=== PATIENT | female | born 1955 | race Caucasian/White ===

== ENCOUNTER 2016-08-15 10:56 | Emergency (ER) | payer BC, OTHER ==
[~2016-08-15] VITALS: Ht 175.3 cm; Wt 74.0 kg
[~2016-08-15 10:56] MED LIST: ALPR.25 PO; ASPI81TA82 PO; LISI2.5T55 PO; LOVA40TA PO; NORV10TA PO; SYNT50TA PO; TYLE3 PO; ZOLO25TA PO
[2016-08-15 11:00] VITALS: BP 128/77; PULSE 101; RESP 16; TEMP 97.4; O2SAT 90
[2016-08-15] MEDS ORDERED: LEVO50TA4 PO (11:20)
[2016-08-15] MEDS ORDERED: TYLETAB34 PO (11:20)
[2016-08-15] MEDS ORDERED: LOVA40TA PO (11:20)
[2016-08-15] MEDS ORDERED: SERT25TA83 PO (11:20)
[2016-08-15] MEDS ORDERED: ASPI81CH CHEW (11:20)
[2016-08-15] MEDS ORDERED: ALPR0.25 PO (11:20)
[2016-08-15] MEDS ORDERED: LISI2.5T3 PO (11:20)
[2016-08-15 11:38] LABS: BLOOD, URINE NEG (NEG); GLUCOSE,URINE NEG (NEG); KETONE, URINE NEG (NEG); NITRITE,URINE NEG (NEG)
[2016-08-15 11:47] LABS: CALCIUM OXALATE CRYSTALS,URINE MOD /hpf; COMMENT (UR) CULT NOT INDICATED; CULTURE IF INDICATED CULT NOT INDICATED; METHOD OF COLLECTION VOIDED; SQUAMOUS EPITHELIAL CELL URINE 0-5 /hpf (0-5); URINE COLOR YELLOW (YELLW/STRAW); WBC, URINE 0-2 /hpf (0-5)
[2016-08-15] MEDS ORDERED: ONDANSETRON HCL 4 MG/2 ML VIAL IV PUSH ONE (12:00)
[2016-08-15] MEDS ORDERED: LOPE2CAP PO (12:04)
[2016-08-15] MEDS ORDERED: ZOFR4TAB3 SL (12:04)
--- NOTE | 2016-08-15 12:04 | PD ---
HPI Chief Complaint: GI Complaint Time Seen by Provider: 11:05 Travel History International Travel<30 days: No Contact w/Intl Traveler<30days: No Traveled to known affect area: No History of Present Illness HPI This 60 year-old woman who presents to the emergency department complaining of episode of diaphoresis and vomiting this morning while work. States around 7: 30 this morning she had the fairly abrupt onset of diaphoresis swelling of vomiting. She felt a little bit better afterwards and went home. She was worried and so she had a for a number to the emergency department. She's had one bowel movement since the onset he symptoms and it was a little bit loose. She had some abdominal cramping when she had the vomiting but the symptoms are most resolved. She saw some queasiness her stomach. No chest pain. No trouble breathing. No urinary symptoms. She otherwise had been feeling generally well and healthy. She had a doughnut from the breakfast buffet this morning but otherwise hasn't eaten anything suspect. History Past Medical History Narrative Medical CVA in 2013 History of von Willebrand's disease in the past although multiple recent tests of been negative. Arthritis Tetanus Vaccination: Unknown Influenza Vaccination: Yes Social History Alcohol Use: No Tobacco Use: No Allergies-Medications (Allergen,Severity, Reaction): Coded Allergies: Penicillin (Verified Allergy, Severe, Hives, 08/15/16) Aspirin (Verified Adverse Reaction, Severe, Bleeding, 08/15/16) Nonsteroidal Anti-Inflammatory Agts (Verified Adverse Reaction, Severe, Bleeding, 08/15/16) Reported Meds & Prescriptions Reported Meds & Active Scripts Active Loperamide (Loperamide HCl) 2 Mg Cap 2 Mg PO DIRECTED PRN One capsule after each loose stool. Not to exceed 8 capsules per day. Zofran Odt (Ondansetron Odt) 4 Mg Tab 4 Mg SL Q8HR PRN May substitute non-ODT form. Reported Levothyroxine (Levothyroxine Sodium) 50 Mcg Tab 50 Mcg PO DAILY Aspirin 81 Mg Chew 81 Mg CHEW DAILY Sertraline (Sertraline HCl) 25 Mg Tab 25 Mg PO DAILY Alprazolam 0.25 Mg Tab 0.25 Mg PO HS PRN Lisinopril 2.5 Mg Tab 0.5 Mg PO BID Lovastatin 40 Mg Tab 40 Mg PO DAILY Tylenol-Codeine #3 (Acetaminophen-Codeine) 300-30 mg Tab 1 Tab PO BID PRN Review of Systems Except as stated in HPI: all other systems reviewed are Neg Physical Exam Narrative GENERAL: Well-appearing 60 year-old woman, no acute distress. SKIN: Focused skin assessment warm/dry. HEAD: Atraumatic. Normocephalic. EYES: Pupils equal and round. No scleral icterus. No injection or drainage. ENT: No nasal bleeding or discharge. Mucous membranes pink and moist. NECK: Trachea midline. No JVD. CARDIOVASCULAR: Regular rate and rhythm. No murmur appreciated. RESPIRATORY: No accessory muscle use. Clear to auscultation. Breath sounds equal bilaterally. GASTROINTESTINAL: Abdomen soft, non-tender, nondistended. Hepatic and splenic margins not palpable. MUSCULOSKELETAL: No obvious deformities. Data Data Last Documented VS Vital Signs Date Time Temp Pulse Resp B/P Pulse Ox O2 Delivery O2 Flow Rate FiO2 08/15/16 11:00 97.4 101 16 128/77 90 Orders Urinalysis - C+S If Indicated (08/15/16 11:01) Complete Blood Count With Diff (08/15/16 11:49) Comprehensive Metabolic Panel (08/15/16 11:49) Lipase (08/15/16 11:49) Troponin I (08/15/16 11:49) Electrocardiogram (08/15/16 ) Iv Access Insert/Monitor (08/15/16 11:49) Ondansetron Inj (Zofran Inj) (08/15/16 12:00) Labs Laboratory Tests Test 08/15/16 08/15/16 11:25 12:10 Urine Collection Type VOIDED Urine Color YELLOW Urine Turbidity CLEAR Urine pH 5.0 Urine Specific [place] GREATER THAN 1.035 Urine Protein TRACE mg/dL Urine Glucose (UA) NEG mg/dL Urine Ketones NEG mg/dL Urine Occult Blood NEG Urine Nitrite NEG Urine Bilirubin NEG Urine Leukocyte Esterase NEG Urine WBC 0-2 /hpf Urine Squamous Epithelial 0-5 /hpf Cells Urine Calcium Oxalate Crystals MOD /hpf Microscopic Urinalysis Comment CULT NOT INDICATED Urine Collection Time 1125 White Blood Count 19.9 TH/MM3 Red Blood Count 5.03 MIL/MM3 Hemoglobin 14.2 GM/DL Hematocrit 42.1 % Mean Corpuscular Volume 83.8 FL Mean Corpuscular Hemoglobin 28.3 PG Mean Corpuscular Hemoglobin 33.8 % Concent Red Cell Distribution Width 13.1 % Platelet Count 213 TH/MM3 Mean Platelet Volume 9.2 FL Neutrophils (%) (Auto) 86.8 % Lymphocytes (%) (Auto) 6.0 % Monocytes (%) (Auto) 3.3 % Eosinophils (%) (Auto) 0.4 % Basophils (%) (Auto) 3.5 % Neutrophils # (Auto) 17.2 TH/MM3 Lymphocytes # (Auto) 1.2 TH/MM3 Monocytes # (Auto) 0.7 TH/MM3 Eosinophils # (Auto) 0.1 TH/MM3 Basophils # (Auto) 0.7 TH/MM3 CBC Comment DIFF FINAL Differential Comment Sodium Level 144 MEQ/L Potassium Level 3.9 MEQ/L Chloride Level 111 MEQ/L Carbon Dioxide Level 26.2 MEQ/L Anion Gap 7 MEQ/L Blood Urea Nitrogen 20 MG/DL Creatinine 1.10 MG/DL Estimat Glomerular Filtration 50 ML/MIN Rate Random Glucose 113 MG/DL Calcium Level 9.0 MG/DL Total Bilirubin 0.5 MG/DL Aspartate Amino Transf 20 U/L (AST/SGOT) Alanine Aminotransferase 26 U/L (ALT/SGPT) Alkaline Phosphatase 83 U/L Troponin I LESS THAN 0.02 NG/ML Total Protein 6.8 GM/DL Albumin 3.4 GM/DL Lipase 194 U/L MDM Medical Decision Making Medical Screen Exam Complete: Yes Emergency Medical Condition: Yes Interpretation(s) My review of EKG: Normal sinus rhythm at a rate of 80, normal axis, normal intervals, no acute ischemia, occasional PAC Differential Diagnosis Acute gastroenteritis, choledocholithiasis, pancreatitis, ACS, other Narrative Course Medical decision making Is a well 58-year-old woman presents emergent from vomiting today. a little bit of loose stool. suspect acute gastroenteritis. we'll check ekg and troponin, we'll also check basic labs and liver enzymes. likely discharge. Diagnosis Primary Impression: Nausea & vomiting Additional Instructions: Take Zofran as needed for nausea or vomiting. Use loperamide if needed for diarrhea. Follow-up with her primary doctor in the next 2-4 days. Return to the emergency department for any worsening abdominal pain, chest pain , trouble breathing, syncope or passing out, or any other new or worsening symptoms. Med/Other Pt SpecificInfo: Prescription(s) given Scripts Loperamide 2 Mg Cap2 Mg PO DIRECTED PRN (DIARRHEA) #8 CAP Ref 0 One capsule after each loose stool. Not to exceed 8 capsules per day. Prov:Dontrell Campo MD 08/15/16 Ondansetron Odt (Zofran Odt)4 Mg Tab4 Mg SL Q8HR PRN (Nausea/Vomiting) #15 TAB May substitute non-ODT form. Prov:Dontrell Campo MD 08/15/16 Disposition: 01 DISCHARGE HOME Condition: Stable Dontrell Campo MD Aug 15, 2016 12:04
[2016-08-15 12:18] LABS: AUTOMATED NEUTROPHIL # 17.2 TH/MM3 (1.8-7.7); BASOPHIL # 0.7 TH/MM3 (0-0.2); BASOPHIL % 3.5 % (0.0-2.0); EOSINOPHIL # 0.1 TH/MM3 (0-0.4); EOSINOPHIL % 0.4 % (0.0-4.0); HEMATOCRIT 42.1 % (35.0-46.0); HEMO FLAGS DIFF FINAL; LYMPHOCYTE # 1.2 TH/MM3 (1.0-4.8); MEAN CELL VOLUME 83.8 FL (80.0-100.0); MEAN CORPUSCULAR HEMOGLOBIN 28.3 PG (27.0-34.0); MEAN CORPUSCULAR HGB CONC 33.8 % (32.0-36.0); MONO % 3.3 % (0.0-8.0); NEUT % 86.8 % (16.0-70.0); PLATELET COUNT 213 TH/MM3 (150-450); RED BLOOD COUNT 5.03 MIL/MM3 (4.00-5.30); RED CELL DISTRIBUTION WIDTH 13.1 % (11.6-17.2); WHITE BLOOD COUNT 19.9 TH/MM3 (4.0-11.0)
[2016-08-15 12:26] LABS: CHLORIDE 111 MEQ/L (98-107); POTASSIUM 3.9 MEQ/L (3.5-5.1); SODIUM (NA) 144 MEQ/L (136-145)
[2016-08-15 12:30] LABS: ANION GAP 7 MEQ/L (5-15); BICARBONATE 26.2 MEQ/L (21.0-32.0); BLOOD UREA NITROGEN 20 MG/DL (7-18)
[2016-08-15 12:33] LABS: AST (GOT) 20 U/L (15-37); GLOMERULAR FILTRATION RATE 50 ML/MIN (>89)
[2016-08-15 12:34] LABS: ALT (GPT) 26 U/L (10-53)
[2016-08-15 12:35] LABS: TOTAL BILIRUBIN ADULT 0.5 MG/DL (0.2-1.0)
[2016-08-15 12:36] LABS: ALKALINE PHOSPHATASE 83 U/L (45-117)
[2016-08-15 13:29] VITALS: BP 125/82
--- NOTE | 2016-08-16 12:18 | EKG ---
Date Performed: 08/15/2016 Time Performed: 11:51:18 PTAGE: 60 years EKG: Sinus rhythm with PAC(s) Borderline ECG Compared to prior tracing no significant change PREVIOUS TRACING : 01/18/2015 10.43 DOCTOR: Hoang Hodge Interpretating Date/Time 08/16/2016 12:17:23
== END 2016-08-15 13:29 | disposition home or self-care (01) ==
LOC: PHED 10:56
DX: R11.2 Nausea with vomiting, unspecified (principal); D68.0 Von Willebrand disease; Z79.82 Long term (current) use of aspirin; Z79.899 Other long term (current) drug therapy; Z86.73 Personal history of transient ischemic attack (TIA), and cerebral infarction without residual deficits
CPT/HCPCS: 80053; 81001; 83690; 84484; 85025; 93005; 96374; 99284; J2405

== ENCOUNTER 2016-09-27 12:53 | Emergency (ER) | payer BC ==
[~2016-09-27] VITALS: Ht 175.3 cm; Wt 73.6 kg
[~2016-09-27 12:53] MED LIST changes: -ALPR.25 PO; +ALPR0.25 PO; +ASPI81CH CHEW; -ASPI81TA82 PO; +LEVO50TA4 PO; +LISI2.5T3 PO; -LISI2.5T55 PO; +LOPE2CAP PO; -NORV10TA PO; +SERT25TA83 PO; -SYNT50TA PO; -TYLE3 PO; +TYLETAB34 PO; +ZOFR4TAB3 SL; -ZOLO25TA PO
[2016-09-27 12:57] VITALS: BP 138/78; PULSE 70; RESP 17; TEMP 97.6; O2SAT 97
[2016-09-27] MEDS ORDERED: LOSA50TA PO (14:44)
[2016-09-27] MEDS ORDERED: CIPR500T2 PO (15:52)
== END 2016-09-27 13:00 | disposition left against medical advice (07) ==
LOC: NED 12:53
DX: R68.89 Other general symptoms and signs (principal)
CPT/HCPCS: 99281

== ENCOUNTER 2016-09-27 14:19 | Emergency (ER) | payer BC ==
[~2016-09-27] VITALS: Ht 175.3 cm; Wt 71.9 kg
[2016-09-27 14:25] VITALS: BP 151/88; PULSE 66; RESP 16; TEMP 97.6; O2SAT 95
[2016-09-27] MEDS ORDERED: LOSA50TA PO (14:44)
[2016-09-27] MEDS ORDERED: SODIUM CHLOR 0.9% 1000 ML INJ 1,000 ML IV ONE (14:45)
--- NOTE | 2016-09-27 14:46 | PD ---
HPI Chief Complaint: Flank/Kidney Pain Time Seen by Provider: 14:30 Travel History International Travel<30 days: No Contact w/Intl Traveler<30days: No Traveled to known affect area: No History of Present Illness HPI Patient is a 60-year-old female who presents to emergency room with complaints of bilateral flank pain, dehydration, decreased urine output for the past 2 days. Patient reports that she has been trying to keep her fluid intake and has been drinking water, reports that she feels dehydrated and reports that the last time this happened, she was diagnosed with a urinary tract infection. Reports that she has frequent UTIs, reports that her past symptoms are similar to today's symptoms. Patient denies any fevers or chills. Patient denies hematuria, denies dysuria, urinary urgency or frequency. Patient with no fevers or chills, no other complaints. PFSH Past Medical History Arthritis: Yes Autoimmune Disease: No Anxiety: Yes Depression: Yes Cancer: No Cardiovascular Problems: Yes High Cholesterol: Yes Cerebrovascular Accident: Yes (2003) Diminished Hearing: No Endocrine: No Gastrointestinal Disorders: Yes GERD: Yes Genitourinary: No Headaches: Yes Hypertension: Yes Immune Disorder: No Implanted Vascular Access Dvce: No Musculoskeletal: Yes Neurologic: Yes Psychiatric: Yes Reproductive: No Respiratory: No Thyroid Disease: Yes (HYPO) Past Surgical History Genitourinary Surgery: Yes (BLADDER SLING) Gynecologic Surgery: Yes (HYSTERECTOMY,. ) Hysterectomy: Yes Social History Alcohol Use: No Tobacco Use: No Substance Use: No Allergies-Medications (Allergen,Severity, Reaction): Coded Allergies: Penicillin (Verified Allergy, Severe, Hives, 09/27/16) Aspirin (Verified Adverse Reaction, Severe, Bleeding, 09/27/16) Nonsteroidal Anti-Inflammatory Agts (Verified Adverse Reaction, Severe, Bleeding, 09/27/16) Reported Meds & Prescriptions Reported Meds & Active Scripts Active Reported Losartan (Losartan Potassium) 50 Mg Tab 50 Mg PO DAILY Levothyroxine (Levothyroxine Sodium) 50 Mcg Tab 50 Mcg PO DAILY Aspirin 81 Mg Chew 81 Mg CHEW DAILY Sertraline (Sertraline HCl) 25 Mg Tab 25 Mg PO DAILY Alprazolam 0.25 Mg Tab 0.25 Mg PO HS PRN Lovastatin 40 Mg Tab 40 Mg PO DAILY Tylenol-Codeine #3 (Acetaminophen-Codeine) 300-30 mg Tab 1 Tab PO BID PRN Review of Systems General / Constitutional: No: Fever Eyes: No: Visual changes HENT: No: Headaches Cardiovascular: No: Chest Pain or Discomfort Respiratory: No: Shortness of Breath Gastrointestinal: No: Abdominal Pain Genitourinary: Positive: Decreased Urinary Output, Hesitancy, Flank Pain, No: Frequency, Dysuria, Hematuria Musculoskeletal: No: Pain Skin: No Rash Neurologic: No: Weakness Psychiatric: No: Depression Endocrine: No: Polydipsia Hematologic/Lymphatic: No: Easy Bruising Physical Exam Narrative GENERAL: No acute distress, nontoxic SKIN: Focused skin assessment warm/dry. HEAD: Atraumatic. Normocephalic. EYES: Pupils equal and round. No scleral icterus. No injection or drainage. ENT: No nasal bleeding or discharge. Mucous membranes pink and moist. NECK: Trachea midline. No JVD. CARDIOVASCULAR: Regular rate and rhythm. No murmur appreciated. RESPIRATORY: No accessory muscle use. Clear to auscultation. Breath sounds equal bilaterally. GASTROINTESTINAL: Abdomen soft, non-tender, nondistended. Hepatic and splenic margins not palpable. Patient with b/l flank pain on exam MUSCULOSKELETAL: No obvious deformities. No clubbing. No cyanosis. No edema. NEUROLOGICAL: Awake and alert. No obvious cranial nerve deficits. Motor grossly within normal limits. Normal speech. PSYCHIATRIC: Appropriate mood and affect; insight and judgment normal. Data Data Last Documented VS Vital Signs Date Time Temp Pulse Resp B/P Pulse Ox O2 Delivery O2 Flow Rate FiO2 09/27/16 14:25 97.6 66 16 151/88 95 Orders Complete Blood Count With Diff (09/27/16 14:34) Comprehensive Metabolic Panel (09/27/16 14:34) Prothrombin Time / Inr (Pt) (09/27/16 14:34) Act Partial Throm Time (Ptt) (09/27/16 14:34) Urinalysis - C+S If Indicated (09/27/16 14:34) Iv Access Insert/Monitor (09/27/16 14:34) Sodium Chlor 0.9% 1000 Ml Inj (Ns 1000 M (09/27/16 14:45) Urine Culture (09/27/16 14:45) Ceftriaxone Inj (Rocephin Inj) (09/27/16 15:15) Labs Laboratory Tests Test 09/27/16 14:45 White Blood Count 15.3 TH/MM3 Red Blood Count 4.95 MIL/MM3 Hemoglobin 14.3 GM/DL Hematocrit 42.4 % Mean Corpuscular Volume 85.7 FL Mean Corpuscular Hemoglobin 28.9 PG Mean Corpuscular Hemoglobin 33.7 % Concent Red Cell Distribution Width 14.1 % Platelet Count 251 TH/MM3 Mean Platelet Volume 9.1 FL Neutrophils (%) (Auto) 70.4 % Lymphocytes (%) (Auto) 18.9 % Monocytes (%) (Auto) 5.2 % Eosinophils (%) (Auto) 0.8 % Basophils (%) (Auto) 4.7 % Neutrophils # (Auto) 10.8 TH/MM3 Lymphocytes # (Auto) 2.9 TH/MM3 Monocytes # (Auto) 0.8 TH/MM3 Eosinophils # (Auto) 0.1 TH/MM3 Basophils # (Auto) 0.7 TH/MM3 CBC Comment DIFF FINAL Differential Comment Prothrombin Time 10.7 SEC Prothromb Time International 1.0 RATIO Ratio Activated Partial 27.5 SEC Thromboplast Time Urine Collection Type CLEAN CATCH Urine Color YELLOW Urine Turbidity CLEAR Urine pH 5.0 Urine Specific [place] 1.025 Urine Protein TRACE mg/dL Urine Glucose (UA) NEG mg/dL Urine Ketones NEG mg/dL Urine Occult Blood TRACE Urine Nitrite NEG Urine Bilirubin NEG Urine Leukocyte Esterase SMALL Urine RBC 10-14 /hpf Urine WBC 25-49 /hpf Urine WBC Clumps MOD Urine Squamous Epithelial > 8 /hpf Cells Urine Bacteria FEW /hpf Urine Hyaline Casts 20-24 /lpf Microscopic Urinalysis Comment CULTURE INDICATED Urine Collection Time 14:45 Sodium Level 137 MEQ/L Potassium Level 3.6 MEQ/L Chloride Level 101 MEQ/L Carbon Dioxide Level 27.0 MEQ/L Anion Gap 9 MEQ/L Blood Urea Nitrogen 44 MG/DL Creatinine 2.00 MG/DL Estimat Glomerular Filtration 25 ML/MIN Rate Random Glucose 102 MG/DL Calcium Level 9.2 MG/DL Total Bilirubin 0.5 MG/DL Aspartate Amino Transf 22 U/L (AST/SGOT) Alanine Aminotransferase 25 U/L (ALT/SGPT) Alkaline Phosphatase 86 U/L Total Protein 7.7 GM/DL Albumin 4.3 GM/DL MDM Medical Decision Making Medical Screen Exam Complete: Yes Emergency Medical Condition: Yes Interpretation(s) Vital Signs Date Time Temp Pulse Resp B/P Pulse Ox O2 Delivery O2 Flow Rate FiO2 09/27/16 14:25 97.6 66 16 151/88 95 Differential Diagnosis Differential includes cystitis, pyelonephritis, kidney stone, dehydration, electrolyte abnormality Narrative Course Patient is a 60-year-old female who presents to emergency room for evaluation of possible UTI versus pyelonephritis. Patient reports over the past 2 days, she has had urinary hesitancy, reports that she has been feeling dehydrated. Patient reports no dysuria, urinary urgency or frequency, reports that when she has these symptoms, she is usually diagnosed with a urinary tract infection. Patient is well-appearing in the emergency room, vital signs are stable. Plan to obtain basic blood work, will check a urinalysis for possible infection. Vital Signs Date Time Temp Pulse Resp B/P Pulse Ox O2 Delivery O2 Flow Rate FiO2 09/27/16 14:25 97.6 66 16 151/88 95 Laboratory Tests Test 09/27/16 14:45 White Blood Count 15.3 TH/MM3 (4.0-11.0) Red Blood Count 4.95 MIL/MM3 (4.00-5.30) Hemoglobin 14.3 GM/DL (11.6-15.3) Hematocrit 42.4 % (35.0-46.0) Mean Corpuscular Volume 85.7 FL (80.0-100.0) Mean Corpuscular Hemoglobin 28.9 PG (27.0-34.0) Mean Corpuscular Hemoglobin 33.7 % Concent (32.0-36.0) Red Cell Distribution Width 14.1 % (11.6-17.2) Platelet Count 251 TH/MM3 (150-450) Mean Platelet Volume 9.1 FL (7.0-11.0) Neutrophils (%) (Auto) 70.4 % (16.0-70.0) Lymphocytes (%) (Auto) 18.9 % (9.0-44.0) Monocytes (%) (Auto) 5.2 % (0.0-8.0) Eosinophils (%) (Auto) 0.8 % (0.0-4.0) Basophils (%) (Auto) 4.7 % (0.0-2.0) Neutrophils # (Auto) 10.8 TH/MM3 (1.8-7.7) Lymphocytes # (Auto) 2.9 TH/MM3 (1.0-4.8) Monocytes # (Auto) 0.8 TH/MM3 (0-0.9) Eosinophils # (Auto) 0.1 TH/MM3 (0-0.4) Basophils # (Auto) 0.7 TH/MM3 (0-0.2) CBC Comment DIFF FINAL Differential Comment Prothrombin Time 10.7 SEC (9.8-11.6) Prothromb Time International 1.0 RATIO Ratio Activated Partial 27.5 SEC Thromboplast Time (24.3-30.1) Urine Collection Type CLEAN CATCH Urine Color YELLOW (YELLW/STRAW) Urine Turbidity CLEAR (CLEAR) Urine pH 5.0 (5.0-8.5) Urine Specific [place] 1.025 (1.002-1.035) Urine Protein TRACE mg/dL (NEG-TRACE) Urine Glucose (UA) NEG mg/dL (NEG) Urine Ketones NEG mg/dL (NEG) Urine Occult Blood TRACE (NEG) Urine Nitrite NEG (NEG) Urine Bilirubin NEG (NEG) Urine Leukocyte Esterase SMALL (NEG) Urine RBC 10-14 /hpf (0-3) Urine WBC 25-49 /hpf (0-5) Urine WBC Clumps MOD (NONE) Urine Squamous Epithelial > 8 /hpf (0-5) Cells Urine Bacteria FEW /hpf (NONE) Urine Hyaline Casts 20-24 /lpf (RARE) Microscopic Urinalysis Comment CULTURE INDICATED Urine Collection Time 14:45 Sodium Level 137 MEQ/L (136-145) Potassium Level 3.6 MEQ/L (3.5-5.1) Chloride Level 101 MEQ/L (98-107) Carbon Dioxide Level 27.0 MEQ/L (21.0-32.0) Anion Gap 9 MEQ/L (5-15) Blood Urea Nitrogen 44 MG/DL (7-18) Creatinine 2.00 MG/DL (0.50-1.00) Estimat Glomerular Filtration 25 ML/MIN (>89) Rate Random Glucose 102 MG/DL (74-106) Calcium Level 9.2 MG/DL (8.5-10.1) Total Bilirubin 0.5 MG/DL (0.2-1.0) Aspartate Amino Transf 22 U/L (15-37) (AST/SGOT) Alanine Aminotransferase 25 U/L (10-53) (ALT/SGPT) Alkaline Phosphatase 86 U/L (45-117) Total Protein 7.7 GM/DL (6.4-8.2) Albumin 4.3 GM/DL (3.4-5.0) Patient reevaluated, patient reports that she is feeling much better at this time. I reviewed all labs and all studies with patient detail, patient with most likely pyelonephritis given her symptoms and flank pain. Patient will follow up with cultures from today. Diagnosis Primary Impression: Pyelonephritis Patient Instructions: General Instructions Additional Instructions: Please provide patient with a copy of her lab work at discharge Please follow up with your primary care doctor on Friday as scheduled, please bring your lab work with you to your appointment Please follow up with your cultures from today Return to ER if symptoms worsen or progress Return to ER as needed Please drink plenty of fluids Med/Other Pt SpecificInfo: Prescription(s) given Scripts Ciprofloxacin 500 Mg [id number] Mg PO BID 7 Days Ref 0 Prov:Shelby Marrero DO 09/27/16 Disposition: 01 DISCHARGE HOME Condition: Stable Shelby Marrero DO Sep 27, 2016 14:46
[2016-09-27 14:53] LABS: AUTOMATED NEUTROPHIL # 10.8 TH/MM3 (1.8-7.7); BASOPHIL # 0.7 TH/MM3 (0-0.2); BASOPHIL % 4.7 % (0.0-2.0); EOSINOPHIL # 0.1 TH/MM3 (0-0.4); EOSINOPHIL % 0.8 % (0.0-4.0); HEMATOCRIT 42.4 % (35.0-46.0); LYMPH % 18.9 % (9.0-44.0); LYMPHOCYTE # 2.9 TH/MM3 (1.0-4.8); MEAN CELL VOLUME 85.7 FL (80.0-100.0); MEAN CORPUSCULAR HEMOGLOBIN 28.9 PG (27.0-34.0); MEAN CORPUSCULAR HGB CONC 33.7 % (32.0-36.0); MONO % 5.2 % (0.0-8.0); NEUT % 70.4 % (16.0-70.0); PLATELET COUNT 251 TH/MM3 (150-450); RED BLOOD COUNT 4.95 MIL/MM3 (4.00-5.30); RED CELL DISTRIBUTION WIDTH 14.1 % (11.6-17.2); WHITE BLOOD COUNT 15.3 TH/MM3 (4.0-11.0)
[2016-09-27 14:54] LABS: BLOOD, URINE TRACE (NEG); GLUCOSE,URINE NEG (NEG); HEMO FLAGS DIFF FINAL; KETONE, URINE NEG (NEG); NITRITE,URINE NEG (NEG)
[2016-09-27 15:05] LABS: METHOD OF COLLECTION CLEAN CATCH; URINE COLOR YELLOW (YELLW/STRAW)
[2016-09-27 15:06] LABS: SQUAMOUS EPITHELIAL CELL URINE > 8 /hpf (0-5)
[2016-09-27 15:07] LABS: BACTERIA, URINE FEW /hpf; COMMENT (UR) CULTURE INDICATED; CULTURE IF INDICATED CULTURE INDICATED
[2016-09-27 15:08] LABS: CHLORIDE 101 MEQ/L (98-107); POTASSIUM 3.6 MEQ/L (3.5-5.1); SODIUM (NA) 137 MEQ/L (136-145)
[2016-09-27 15:11] LABS: ANION GAP 9 MEQ/L (5-15); BLOOD UREA NITROGEN 44 MG/DL (7-18)
[2016-09-27 15:13] LABS: APTT (PATIENT) 27.5 SEC (24.3-30.1); PROTHROMBIN TIME - PATIENT 10.7 SEC (9.8-11.6)
[2016-09-27 15:14] LABS: ALT (GPT) 25 U/L (10-53)
[2016-09-27 15:15] LABS: AST (GOT) 22 U/L (15-37); GLOMERULAR FILTRATION RATE 25 ML/MIN (>89)
[2016-09-27] MEDS ORDERED: cefTRIAXone INJ 1,000 MG in SODIUM CHLORIDE 0.9% INJ 100 ML IV ONE (15:15)
[2016-09-27 15:16] LABS: TOTAL BILIRUBIN ADULT 0.5 MG/DL (0.2-1.0)
[2016-09-27 15:17] LABS: ALKALINE PHOSPHATASE 86 U/L (45-117)
[2016-09-27] MEDS ORDERED: CIPR500T2 PO (15:52)
== END 2016-09-27 16:50 | disposition home or self-care (01) ==
LOC: PHED 14:19
DX: N12 Tubulo-interstitial nephritis, not specified as acute or chronic (principal); I10 Essential (primary) hypertension; E78.00 Pure hypercholesterolemia, unspecified; K21.9 Gastro-esophageal reflux disease without esophagitis; E03.9 Hypothyroidism, unspecified
CPT/HCPCS: 80053; 81001; 85025; 85610; 85730; 87086; 96361; 96365; 99284; J0696; J7030